=== PATIENT | male | born 2000 | race Caucasian/White ===

== ENCOUNTER 2023-04-05 10:23 | Outpatient (CLI) | payer OTHER, BC, SELFPAY | END 2023-04-05 10:24 | disposition home or self-care (01) | LOC: AMB 04-07 16:59 | PROVIDERS: Visit Provider Emergency Medicine | DX: R06.09 Other forms of dyspnea (principal) | CPT/HCPCS: A0425; A0427 ==

== ENCOUNTER 2023-04-05 10:47 | Emergency (ER) | payer OTHER, BC, SELFPAY ==
[2023-04-05] VITALS (26 sets, daily range): BP systolic 124–164; BP diastolic 90–109; PULSE 87–110; RESP 16; TEMP 36.7; O2SAT 94–97
--- NOTE | 2023-04-05 11:05 | ED.NURSE ---
Reported case to Poison Control. Recommended treatment for symptoms of respiratory symptoms are bronchodilators and steam at home. Do not recommend steroids. Patient is expected to improve in two hours.
--- NOTE | 2023-04-05 11:20 | ED.NURSE ---
Blood drawn from IV and brought to lab.
[2023-04-05 11:26] LABS: Basophils Absolute Auto 0.03 K/uL (0.00-0.30); Basophils Percent Auto 0.5 % (0.0-3.0); Eosinophils Absolute Auto 0.05 K/uL (0.00-0.50); Eosinophils Percent Auto 0.8 % (0.0-7.0); Hematocrit 45.3 % (37.0-53.0); Hemoglobin* 16.2 gm/dL (13.5-17.5); Immature Granulocytes Abs Auto 0.03 K/uL (0.00-0.30); Immature Granulocytes Pct Auto 0.5 %; Lymphocytes Absolute Auto 1.75 K/uL (0.90-2.90); Lymphocytes Percent Auto 26.6 % (20-44); Mean Corpuscular HGB Conc 36 gm/dL (32-36); Mean Corpuscular Hemoglobin 31 pg (26-34); Mean Corpuscular Volume 86 fL (80-100); Monocytes Percent Auto 5.9 % (0.0-11.0); Neutrophils Absolute Auto 4.34 K/uL (1.7-7.0); Neutrophils Percent Auto 65.7 % (42.0-72.0); Platelet Count* 170 K/uL (140-440); RDW Coefficient of Variation % 11.3 % (11.5-15.5); Red Blood Count 5.28 m/uL (4.30-5.90); White Blood Count* 6.59 K/uL (4.50-11.00)
[2023-04-05 11:40] LABS: Chloride* 98 mmol/L (96-114); Sodium* 137 mmol/L (135-149)
[2023-04-05 11:43] LABS: Anion Gap 14 mEq/L (7-15); Carbon Dioxide* 25 mmol/L (20-32); Creatinine* 0.9 mg/dL (0.5-1.5); Estimated Glomerular Filt Rate 123 ml/min
[2023-04-05 11:44] LABS: Blood Urea Nitrogen* 16 mg/dL (5-24); Calcium* 9.1 mg/dL (8.4-10.6); Glucose* 117 mg/dL (60-115)
[2023-04-05 11:53] LABS: Slide Review Reflex No
--- NOTE | 2023-04-05 12:21 | ED_ITS ---
HPI - General Adult General Chief complaint: Chemical Exposure Stated complaint: chlorine exposure Time Seen by Provider: 04/05/23 11:01 Source: patient Limitations: no limitations History of Present Illness HPI narrative: 22-year-old male presenting today after breathing and chlorine gas. 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 He thinks that he had intake more than a couple breaths before moving away from the area. However he became acutely short of breath and EMS was called. Patient did receive bronchodilator treatment in route and feels significantly better. Patient denies the air rushing on to his face he states that he just smelled that in the air from a leaky valve. He denies any eye irritation. No pain in the inside of his mouth. Denies any chest pain. Past medical history is benign. He denies any lung problems in the past including asthma. He is not a smoker and does not vape. Past surgical history significant for wisdom teeth extraction. Poison control was called. Related Data Home Medications Medication Instructions Recorded Confirmed No Known Home Medications 04/05/23 04/05/23 Allergies Allergy/AdvReac Type Severity Reaction Status Date / Time No Known Drug Allergies Allergy Verified 04/05/23 11:05 Review of Systems Status of ROS: Reports: 10 or more systems reviewed and unremarkable except as noted in History and below Exam Const: Vital Signs, click to edit/add: Vital Signs - 24 hr 04/05/23 10:53 04/05/23 10:54 04/05/23 10:56 Temperature 98.1 F Pulse Rate 109 H 107 H Pulse Rate [Pulse Oximeter] 103 H Respiratory Rate 16 Blood Pressure 149/109 H Blood Pressure [Le ft Upper Arm] 149/109 H Pulse Oximetry 96 95 97 Oxygen Delivery Me thod Room Air 04/05/23 11:00 04/05/23 11:02 04/05/23 11:07 Temperature Pulse Rate 100 105 H Pulse Rate [Pulse Oximeter] Respiratory Rate Blood Pressure 124/94 H Blood Pressure [Le ft Upper Arm] Pulse Oximetry 95 94 95 Oxygen Delivery Me thod 04/05/23 11:15 04/05/23 11:19 04/05/23 11:20 Temperature Pulse Rate 105 H 104 H 107 H Pulse Rate [Pulse Oximeter] Respiratory Rate Blood Pressure 150/92 H Blood Pressure [Le ft Upper Arm] Pulse Oximetry 94 94 95 Oxygen Delivery Me thod 04/05/23 11:30 04/05/23 11:32 04/05/23 11:33 Temperature Pulse Rate 96 99 96 Pulse Rate [Pulse Oximeter] Respiratory Rate Blood Pressure 136/95 H Blood Pressure [Le ft Upper Arm] Pulse Oximetry 94 95 94 Oxygen Delivery Me thod 04/05/23 11:45 04/05/23 11:47 04/05/23 12:00 Temperature Pulse Rate 101 H 110 H 102 H Pulse Rate [Pulse Oximeter] Respiratory Rate Blood Pressure 157/97 H Blood Pressure [Le ft Upper Arm] Pulse Oximetry 94 95 94 Oxygen Delivery Me thod 04/05/23 12:08 04/05/23 12:15 04/05/23 12:17 Temperature Pulse Rate 89 87 89 Pulse Rate [Pulse Oximeter] Respiratory Rate Blood Pressure 128/96 H 140/98 H Blood Pressure [Le ft Upper Arm] Pulse Oximetry 95 96 95 Oxygen Delivery Me thod 04/05/23 12:31 04/05/23 12:36 Temperature Pulse Rate 89 Pulse Rate [Pulse Oximeter] Respiratory Rate Blood Pressure 140/96 H Blood Pressure [Le ft Upper Arm] Pulse Oximetry 97 Oxygen Delivery Me thod Course Course ED Course: EKG was done, read by me, shows normal sinus rhythm with sinus arrhythmia with a pulse of 96. Patient was placed on licensed nuclear operator and continuous pulse ox. Lab work including chemistries and CBC are unremarkable. Patient was monitored for 2 hours per recommendations of poison Control. During these 2 hours he had no difficulty breathing, no pain or irritation of his eyes. He remained hemodynamically stable. Vital Signs Vital signs: Initial Vital Signs Pulse Rate 109 H 04/05/23 10:53 Pulse Oximetry 96 04/05/23 10:53 Vital Signs Pulse Rate 109 H 04/05/23 10:53 Pulse Oximetry 96 04/05/23 10:53 Temperature 98.1 F 04/05/23 10:56 Pulse Rate 89 04/05/23 12:36 Respiratory Rate 16 04/05/23 10:56 Blood Pressure 140/96 H 04/05/23 12:31 Pulse Oximetry 97 04/05/23 12:36 Oxygen Delivery Method Room Air 04/05/23 10:56 Medical Decision Making MDM Narrative Medical decision making narrative: Chlorine gas inhalation. Patient is symptomatic for the last 2 hours. Lab Data Lab results reviewed: Yes I reviewed the patient's lab results Labs: Lab Results 04/05/23 Range/Units 11:15 WBC 6.59 (4.50-11.00) K/uL RBC 5.28 (4.30-5.90) m/uL Hgb 16.2 (13.5-17.5) gm/dL Hct 45.3 (37.0-53.0) % MCV 86 (80-100) fL MCH 31 (26-34) pg MCHC 36 (32-36) gm/dL RDW Coeff of [place] 11.3 L (11.5-15.5) % Plt Count 170 (140-440) K/uL Neut % (Auto) 65.7 (42.0-72.0) % Lymph % (Auto) 26.6 (20-44) % [place] % (Auto) 5.9 (0.0-11.0) % Eos % (Auto) 0.8 (0.0-7.0) % Baso % (Auto) 0.5 (0.0-3.0) % Neut # (Auto) 4.34 (1.7-7.0) K/uL Lymph # (Auto) 1.75 (0.90-2.90) K/uL [place] # (Auto) 0.40 (0.00-0.90) K/UL Eos # (Auto) 0.05 (0.00-0.50) K/uL Baso # (Auto) 0.03 (0.00-0.30) K/uL Abs Immat Gran (auto) 0.03 (0.00-0.30) K/uL Imm/Tot Granulo (auto) 0.5 % Sodium 137 (135-149) mmol/L Potassium 4.0 (3.6-5.1) mmol/L Chloride 98 (96-114) mmol/L Carbon Dioxide 25 (20-32) mmol/L Anion Gap 14 (7-15) mEq/L BUN 16 (5-24) mg/dL Creatinine 0.9 (0.5-1.5) mg/dL Estimated GFR 123 ml/min Glucose 117 H (60-115) mg/dL Calcium 9.1 (8.4-10.6) mg/dL Imaging Data Chest x-ray: Attestation: I have reviewed the pertinent imaging results. Radiologist's impression: Chest 2 views. COMPARISON: None. FINDINGS: Cardiovascular and mediastinum: Heart size and vasculature are normal in caliber and appearance. Lungs and pleural spaces: Lungs are clear. No sign of infiltrate or mass. No sign of pleural effusion. No pneumothorax. Bones and soft tissues: No significant findings. IMPRESSION: Low lung volumes. No acute or significant findings. ECG Data Attestation: I personally reviewed and interpreted this ECG as follows: Discharge Plan Discharge Clinical Impression: Chlorine gas exposure Patient Disposition: Home, Self-Care Condition: Stable Additional Instructions: Return to the emergency department if you develop any unusual symptoms within the next 24 hours, especially if your cough worsens, you develop difficulty breathing or shortness of breath, you develop chest pain, you develop increased pain or discharge from your eyes. No follow-up appointment is necessary unless you develop any of the symptoms listed above. Prescriptions: No Action No Known Home Medications Follow Up/Referrals: Provider,Not a Local [Primary Care Provider] - Stand Alone Forms: [employer] Info Instructions
--- NOTE | 2023-04-05 12:26 | CRLHL7_ITS ---
For Patients: As a result of the Century Cures Act, medical imaging exams and procedure reports are released immediately into your electronic medical record. You may view this report before your referring provider. If you have questions, please contact your health care provider. INDICATION: [id number]. TECHNIQUE: Chest 2 views. COMPARISON: None. FINDINGS: Cardiovascular and mediastinum: Heart size and vasculature are normal in caliber and appearance. Lungs and pleural spaces: Lungs are clear. No sign of infiltrate or mass. No sign of pleural effusion. No pneumothorax. Bones and soft tissues: No significant findings. IMPRESSION: Low lung volumes. No acute or significant findings. Dictated by Lewis Randle MD @ 04/05/2023 1:11:19 PM (Electronically Signed)
== END 2023-04-05 13:34 | disposition home or self-care (01) ==
PROVIDERS: Emergency Provider Family Medicine
DX: T59.4X1A Toxic effect of chlorine gas, accidental (unintentional), initial encounter (principal); R06.02 Shortness of breath; Y99.0 Civilian activity done for income or pay
CPT/HCPCS: 36415; 71046; 80048; 85025; 93005; 94761; 99284; 99285